=== PATIENT | male | born 1965 | race Caucasian/White ===

== ENCOUNTER 2017-12-03 15:49 | Inpatient (IN) | payer OTHER ==
[~2017-12-03] VITALS: Ht 193 cm; Wt 166.5 kg
[~2017-12-03 15:49] MED LIST: ACCUPRIL40 MG PO; COREG12.5 MG PO; COUMADIN10 MG PO; FENOFIBRATE134 MG PO; GLUCOPHAGE1000 MG PO; HUMULIN R100 U/ML SC; ISOSORBIDE MONO30 M1 PO; LIPITOR10 MG PO; NITROSTAT0.4 MG SL; VICTOZA0.6 MG/0.1 SQ
[2017-12-03 16:24] VITALS: BP 125/73; BMI 44.7
[2017-12-03] MEDS ORDERED: PRADAXA150 MG (17:55)
[2017-12-03] MEDS ORDERED: GEMFIBROZIL600 MG PO (17:56)
[2017-12-03] MEDS ORDERED: STEGLATRO PO (18:00)
[2017-12-03] MEDS ORDERED: DUEXIS 800-26.1 EACH PO (18:01)
[2017-12-03] MEDS ORDERED: VENTOLIN HFA18 GM INH (18:02)
[2017-12-03] MEDS ORDERED: TOUJEO SOL300 UNIT/1 SC (18:03)
[2017-12-03] MEDS ORDERED: HUMALOG 30100 UNITS/ (18:05)
[2017-12-03 19:56] VITALS: BP 119/70
[2017-12-04] VITALS: BP 109/54
[2017-12-04 04:06] VITALS: BP 87/42
[2017-12-04 08:45] VITALS: BP 103/54
[2017-12-04 10:41] VITALS: Ht 193 cm; Wt 166.5 kg
[2017-12-04 12:39] VITALS: BP 107/58
[2017-12-04 16:37] VITALS: BP 102/65
[2017-12-04 19:59] VITALS: BP 101/49
[2017-12-05] VITALS: BP 110/61
[2017-12-05 04:00] VITALS: BP 99/51
[2017-12-05 09:18] VITALS: BP 100/56
[2017-12-05 13:25] VITALS: BP 114/64
[2017-12-05 16:20] VITALS: BP 101/53
[2017-12-05 20:00] VITALS: BP 126/70
[2017-12-06] VITALS: BP 106/58
[2017-12-06 04:00] VITALS: BP 89/50
[2017-12-06 08:22] VITALS: BP 107/58
[2017-12-06 12:48] VITALS: BP 124/73
[2017-12-06 16:08] VITALS: BP 117/66
[2017-12-06] MEDS ORDERED: CIPROFLOXACIN750 MG PO (18:04)
== END 2017-12-06 18:40 | disposition home or self-care (01) | DRG 639 ==
LOC: D.MS 15:49
DX: E11.621 Type 2 diabetes mellitus with foot ulcer (principal); L97.529 Non-pressure chronic ulcer of other part of left foot with unspecified severity; L97.519 Non-pressure chronic ulcer of other part of right foot with unspecified severity; I10 Essential (primary) hypertension; B95.62 Methicillin resistant Staphylococcus aureus infection as the cause of diseases classified elsewhere; B95.2 Enterococcus as the cause of diseases classified elsewhere